=== PATIENT | male | born 1955 | race Caucasian/White ===

== ENCOUNTER 2016-12-14 09:47 | Inpatient (IN) | payer BC ==
--- NOTE | ~2016-12-14 | DS ---
Discharge Summary [facility] [address] [place] [place]. [address] NAME: ALICE SCHWARTZ : 53 STATUS : DIS IN PAT#: [id number] AGE: 61 ADM/REG DATE : 12/14/16 MR#: [id number] REPORT SERV DATE: 12/14/16 DICTATED BY: CHLOÉ GUSTAFSON DATE: 12/14/16 REPORT STATUS : Draft TRANSCRIBED BY: MODL DATE: 12/14/16 ADMISSION DATE: 12/14/2016 DISCHARGE DATE: 12/14/2016 HOSPITAL COURSE: Mr. Schwartz was a 61-year-old gentleman with a past medical history of underlying multiple myeloma who presented to the ER today in profound septic shock with neutropenia and thrombocytopenia. He was also noted to be hypokalemic. The patient was immediately given antibiotics, however, had a convulsive event in which patient then went comatose and required immediate intubation. Critical Care was called down to the emergency room. We then saw the patient, in which the patient continued to have profound shock with noted worsening acidosis with his pCO2 transcending from 37 up to 86. Prior to our arrival, Respiratory Therapy had actually already conducted ventilator strategy changes from SIMV to CMV for which the patient had a minute ventilation around 11 or 12. We further increased minute ventilation. However, the patient at that time, had his first PEA arrest which lasted around five minutes. After return of pulses bilaterally, the patient still had a blood pressure in the 90s on Levophed, vasopressin, Solu-Cortef, and amps of epinephrine. We conducted an immediate CT scan shortly thereafter on the way up to the intensive care unit to make sure the patient did not have any stroke. No stroke was seen other than old cortical strokes. The patient was then sent to the intensive care unit, the patient was noted to have a blood pressure greater than 100 systolic, however, continued hypoxia. There was no response to verbal or painful stimuli noted ever since my arrival in the emergency room. We then got a stat EEG, which showed significant slowing of the brain waves. He was noted to be hypercapnic at that time also. His blood pressure was also around 100 systolic. He then went into his second PEA arrest at 3:18, due to the gravity of his overall condition of continued hypercapnic respiratory failure and hypoxia on maximum mechanical ventilation, continued shock, significant encephalopathy and concern for anoxic brain injury in the setting of a right lower lobe pneumonia and shock refractory to steroids and pressor support along with fluids, it was felt that this patient would not survive a meaningful survival. Furthermore, we stopped the CPR and the patient had no brain wave activity noted at 5:20 upon our review and the patient went into final asystole around 3:31 as he had a bradycardic arrhythmia at the end of the code until asystole. Attempts to contact brother, Lai, are currently occurring, unable to get in touch with family. DISPOSITION: . DICTATED BY: Chloé Gustafson MD HFQ/KIRA Chloé Gustafson MD / [id number] Discharge Summary [address] [address] NAME: ALICE SCHWARTZ : 53 STATUS : DIS IN PAT#: [id number] AGE: 61 ADM/REG DATE : 12/14/16 MR#: [id number] REPORT SERV DATE: 12/14/16 DICTATED BY: CHLOÉ GUSTAFSON DATE: 12/14/16 REPORT STATUS : Draft TRANSCRIBED BY: KIRA DATE: 12/14/16 CC: Chloé Gustafson MD
--- NOTE | ~2016-12-14 | OP ---
Record Of [facility] [address] [place]. [address] NAME: ALICE SCHWARTZ : 53 STATUS : ADM IN PAT#: [id number] AGE: 61 ADM/REG DATE : 12/14/16 MR#: [id number] REPORT SERV DATE: 12/14/16 DICTATED BY: CHLOÉ DANIEL DATE: 12/14/16 REPORT STATUS : Draft TRANSCRIBED BY: MODL DATE: 12/14/16 DATE OF PROCEDURE: 12/14/2016 INDICATION FOR PROCEDURE: Second code blue. TIME OF CODE BLUE: The patient's second code blue was around 1520 hours. Please see nursing documentation. PROCEDURE NOTE: The patient was obtaining an EEG, for which the patient had significant slow wave motion and was maximized on mechanical ventilation with a rising pCO2 and acidemia. He also has significant hypoxemia. During the cardiac arrest, the patient was noted to have loss of brain waves and due to the severity of his underlying septic acidosis and multisystem organ failure with maximization of ventilator strategy and also pressor support, it was deemed that this patient would not survive a meaningful life and CPR was stopped around 1 minute into the 2nd CPR, and the patient was marianela arrest. Looking at the EEG monitor as CPR was going forward, the patient had no brainwave activity and CPR was stopped. The patient was made do not resuscitate. The patient proceeded to asystole. HFQ/KIRA Chloé Daniel MD / [id number] CC: Chloé Daniel MD
--- NOTE | ~2016-12-14 | OP ---
Record Of [facility] [address] [place]. [address] NAME: ALICE SCHWARTZ : 53 STATUS : ADM IN [facility]#: [id number] AGE: 61 ADM/REG DATE : 12/14/16 MR#: [id number] REPORT SERV DATE: 12/14/16 DICTATED BY: CHLOÉ DANIEL DATE: 12/14/16 REPORT STATUS : Draft TRANSCRIBED BY: MODL DATE: 12/14/16 DATE OF PROCEDURE: 12/14/2016 INDICATION FOR PROCEDURE: Cardiopulmonary arrest. TIME OF CODE BLUE: 1216 hours. PROCEDURE: The patient was in the emergency room, Critical Care team along with the emergency staff was actually in the room at the time of code blue. The patient by physical exam turned blue and was noted to be in PA arrest. He was very acidotic. At that time, CPR and Ambu bag ventilation through the ET tube was started immediately. The patient received epinephrine. He was PA and did not require any shocks. At that time, we obtained an arterial blood gas, which showed that the pH was 7.20 and pCO2 was 64, the patient's pCO2 was 86 prior. We had return of spontaneous circulation around 4-5 minutes after CPR. However, the patient's mental status was abnormal prior and post CPR. The patient is to be transferred to the CT scanner for evaluation of the brain and further stabilization in the intensive care unit. HFQ/KIRA Chloé Daniel MD / [id number] CC: Chloé Daniel MD
--- NOTE | ~2016-12-14 | HP ---
History And Physical [address] [place]. [address] NAME: ALICE SCHWARTZ : 53 STATUS : ADM IN [facility]#: [id number] AGE: 61 ADM/REG DATE : 12/14/16 MR#: [id number] REPORT SERV DATE: 12/14/16 DICTATED BY: MJ DANIEL DATE: 12/14/16 REPORT STATUS : Draft TRANSCRIBED BY: MODL DATE: 12/14/16 DATE OF ADMISSION: 12/14/2016 CONTINUATION: FAMILY HISTORY: Unable to obtain as there is no family currently in the room. SOCIAL HISTORY: The patient is a smoker, no alcohol or drug use per record. REVIEW OF SYSTEMS: Unable to obtain review of systems due to current status. PHYSICAL EXAMINATION: VITAL SIGNS: The patient is currently tachycardic with a heart rate around 120s to 130s, sinus arrhythmia. Blood pressure: The patient has a pulse, pressure is around 90 or 80 systolic. Respiratory rate: Per ventilator as the patient is currently on mechanical ventilation. EYES: Mediumly dilated and fixed, he is not blinking his eyes, has been on no sedation for 2.5 hours. Nonresponsive to verbal or painful stimuli. PULMONARY: Breath sounds bilaterally with decreased breath sounds in the posterior bases with mild wheezing. CARDIAC: Muffled heart sounds and tachycardic. ABDOMEN: The patient is status post multiple abdominal surgeries, abdomen is soft, nondistended. Has an ileostomy. LOWER EXTREMITIES: The patient has livedo reticularis bilaterally, cold extremities in all four extremities, faint peripheral pulses but does have femoral pulses. ASSESSMENT: Mr. 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 He has clearly had multiple abdominal surgeries. Again, we do not have his records from the outside and have no family currently at the bedside. The patient was seen in the emergency room, he was already on mechanical ventilation prior to my arrival. Within about 15 minutes after my arrival, the patient went PEA, his pCO2 increased rapidly as he was on SIMV and RT appropriately changing back to a regular CMV mode of ventilation. He had a cardiac arrest which lasted around 5 minutes, we had return of spontaneous circulation. Due to the known obvious neurologic insult that has clearly occurred, his situation has become significantly worse. ADMISSION PLAN: 1. Neurologic: Unclear of what may have happened, according to the nursing staff, he was in respiratory distress but was still able to communicate somewhat and had acute worsening of shortness of breath and neurologically he is essentially in a comatose state. We will obtain a stat CT scan of the head. His neurologic change occurred prior to his PEA arrest which occurred in the emergency room. 2. Shock: With the patient's neutropenia and thrombocytopenia, it is thought that he may History And Physical [address] [address] NAME: ALICE SCHWARTZ : 53 STATUS : ADM IN [facility]#: [id number] AGE: 61 ADM/REG DATE : 12/14/16 MR#: [id number] REPORT SERV DATE: 12/14/16 DICTATED BY: MJ DANIEL DATE: 12/14/16 REPORT STATUS : Draft TRANSCRIBED BY: MODL DATE: 12/14/16 have a septic shock picture. Cultures have been checked, we will obtain a sputum culture and since the patient most likely has had recent hospitalizations, we will start vancomycin and Zosyn. We will also start Solu-Cortef and for his shock, he is on Levophed, started vasopressin and Solu-Cortef. We will also start epinephrine and place an arterial line. 3. Kidney: Acute kidney injury, currently mild but I anticipate this to get worse. 4. Pulmonary: The patient is in acute respite respiratory failure: Changed his mechanical ventilation settings and now pCO2 is around 60. 5. Hematologic: The patient is noted to be thrombocytopenic and mild neutropenia. Most likely from underlying sepsis. 6. Goals of care: The patient is in a grave state, he is quite critical, has a high chance of mortality. Attempting to obtain family contact, this patient is appropriate currently for a [id number] and concern for anoxic brain injury. If this is not his wishes, comfort care measures should be taken; however, we, at this point in time, have no family and the patient's current status over the last several hours has deteriorated significantly, most likely from underlying septic shock. BRENTQ/MODL Mj Daniel MD / [id number] CC: Mj Daniel MD
--- NOTE | ~2016-12-14 | EEG ---
Electroencephalogram [facility] [address] [place]. [address] NAME: ALICE SCHWARTZ : 53 STATUS : DIS IN PAT#: [id number] AGE: 61 ADM/REG DATE : 12/14/16 MR#: [id number] REPORT SERV DATE: 12/22/16 DICTATED BY: GABO JAMES DATE: 12/21/16 REPORT STATUS : Draft TRANSCRIBED BY: KIRA DATE: 12/21/16 INTERPRETING PHYSICIAN: Gabo James MD-Neurology. EEG NUMBER: [id number]. LOCATION: CCU bed 9. REASON FOR EEG: Status post cardiac arrest. Poor responsiveness. ELECTROENCEPHALOGRAPHY REPORT: 23 surface electrodes, 10-20 international placement was used. The patient was noted unresponsive throughout this study. Photic stimulation was performed. Video monitoring was utilized. The background activity consisted of very low voltage, poorly organized theta and irregular in appearance. Activity frequency between 10 and 15. The patient became unresponsive with periods of cardiac arrhythmias and cardiac standstill. CPR was performed. A gradual decrease of heart rate was noted. The patient was pronounced. IMPRESSION: STATUS POST CARDIOPULMONARY ARREST. DURING THE EEG, THE PATIENT BECAME SEVERELY BRADYCARDIC. CPR WAS PERFORMED. THE PATIENT DID NOT RESPOND TO ALL THE MEASURES, AND THE PATIENT'S CEREBRAL ACTIVITY DISAPPEARED, AND NO CEREBRAL ACTIVITY WAS SEEN AT THE END OF THE RECORDING COMPATIBLE WITH CEREBRAL ACTIVITY WITH NO DISCERNIBLE ACTIVITY OBSERVED AT THE END OF THE RECORDING. NITZAA/KIRA Gabo James MD / [id number] CC: Chloé Gustafson MD
--- NOTE | ~2016-12-14 | HP ---
History And Physical [place] [place]. [address] NAME: ALICE SCHWARTZ : 53 STATUS : ADM IN [facility]#: [id number] AGE: 61 ADM/REG DATE : 12/14/16 MR#: [id number] REPORT SERV DATE: 12/14/16 DICTATED BY: CHLOÉ GUSTAFSON DATE: 12/14/16 REPORT STATUS : Draft TRANSCRIBED BY: MODL DATE: 12/14/16 DATE OF ADMISSION: 12/14/2016 REQUESTING FACILITY: Emergency room. CHIEF COMPLAINT: Unable to obtain as the patient is currently intubated. HISTORY OF PRESENT ILLNESS: The patient is unable to give a history as he is currently intubated. Unfortunately we have no family at the bedside, no records as he usually goes to an outside hospital and the emergency room has requested twice to get the records. However per EMS and also per discussion with the nursing staff and ER attending, this patient came in with shortness of breath. Was noted to be hypotensive with tachycardia and mild hypoxia. The patient arrived via ambulance and was in extremis. The patient was intubated. He had moderate to severe shortness of breath. The patient's nurse mentioned that he was barely able to speak but he was complaining of shortness of breath. He was initially placed on a non-rebreather and eventually increased to BiPAP in which he required intubation. Now that he has been intubated, the patient's pCO2 has unfortunately increased and ventilator strategy has changed per RT. PAST MEDICAL HISTORY: Hypertension, diabetes, probable intraabdominal cancer. HOME MEDICATIONS: Home medication list reviewed, incomplete list DICTATION ENDS HERE HFQ/MODL Chloé Gustafson MD / [id number] CC: Chloé Gustafson MD
[2016-12-14 08:45] LABS: ALLENS TEST Pos; BE (BASE EXCESS) -7.4 MEQ/L (0 +/- 2.5); CARBOXYHEMOGLOBIN 1.8 % (0-3); HCO3 (ACTUAL BICARBONATE) 18.2 MEQ/L (23-27); HEMOBLOGIN CONTENT 10.4 G/DL (14-18); INSTRUMENT SERIAL # 8087; METHEMOGLOBIN 0.3 % (0-3); O2 CONTENT 13.1 VOL% (18-24); OPERATOR ID 18801; PCO2 (CO2 TENSION) 37 MMHG (35-45); PO2 (O2 TENSION) 73 MMHG (79-93); SAMPLE Arterial; pH 7.31 (7.37-7.43)
[2016-12-14 09:24] LABS: BASOPHILS 0 %; EOSINOPHILS 0 %; ER CBC TAT 0 Hrs 09 Mins; HEMATOCRIT 30.3 % (40.0-51.0); HEMOGLOBIN 9.8 g/dL (13.6-17.8); IMMATURE GRANULOCYTES 14.2 %; LYMPHOCYTES 18.4 %; LYMPHOCYTES ABSOLUTE 0.39 10/3/uL (0.67-4.30); MANUAL DIFF NO %; MEAN CORPUS HGB CONC 32.3 g/dL (32.0-36.0); MEAN CORPUSCULAR HEMOGLOB 32.6 pg (26.0-34.0); MEAN CORPUSCULAR VOLUME 100.7 fL (80-100); MEAN PLATELET VOLUME 11.6 fL (9.2-13.0); MONOCYTES 3.3 %; MONOCYTES ABSOLUTE 0.07 10/3/uL (0.21-1.20); NEUTROPHILS 64.1 %; NEUTROPHILS ABSOLUTE 1.36 10/3/uL (2.02-8.40); NUCLEATED RED BLOOD CELLS 5.9 /100WBC (0-0); PLATELET COUNT 57 10/3/uL (150-400); RBC DISTRIBUTION WIDTH 19.2 % (12.0-16.0); RED CELL COUNT 3.01 10/6/uL (4.7-6.1); WHITE BLOOD CELLS 2.1 10/3/uL (4.5-10.5)
[2016-12-14 09:34] LABS: A/G RATIO 0.5 (0.7-1.9); ALBUMIN 1.8 G/DL (3.5-5.0); ALKALINE PHOSPHATASE 164 U/L (45-117); BUN (BLOOD UREA NITROGEN) 19 MG/DL (6-23); CALCIUM, SERUM 8.2 MG/DL (8.5-10.4); CHLORIDE, SERUM 99 MMOL/L (96-112); CO2 (CARBON DIOXIDE) 23 MMOL/L (24-34); CREATININE 1.61 MG/DL (0.70-1.30); GFR AFRICAN AMERICAN 52 ML/MIN (>=60); GFR NON AFRICAN AMERICAN 45 ML/MIN (>=60); GLOBULIN 3.5 G/DL (2.5-4.1); GLUCOSE, SERUM 91 MG/DL (60-99); POTASSIUM, SERUM 2.9 MMOL/L (3.5-5.3); SGOT(AST) 59 U/L (5-40); SGPT(ALT) 46 U/L (5-65); SODIUM, SERUM 139 MMOL/L (135-148); TOTAL BILIRUBIN 0.3 MG/DL (0-1.2); TOTAL PROTEIN 5.3 G/DL (6.0-8.5)
[2016-12-14 09:37] LABS: LACTATE 12.4 MMOL/L (0.3-2.4)
[2016-12-14 10:05] LABS: BAND NEUTROPHILS 10 %; ER DIFF TAT 0 Hrs 50 Mins; LYMPHOCYTES 17 %; LYMPHOCYTES ABSOLUTE (CALC) 0.36 10/3/uL (0.67-4.30); MONOCYTES 6 %; MONOCYTES ABSOLUTE (CALC) 0.13 10/3/uL (0.21-1.20); NEUTROPHILS ABSOLUTE (CALC) 1.62 10/3/uL (2.02-8.40); SEGMENTED NEUTROPHIL (0) 67 %; TOTAL NUCLEATED CELLS 100
[2016-12-14 10:06] LABS: ANISOCYTOSIS 1+ (5-10/OIF) (0-5/OIF); MACROCYTES 1+ (5-10/OIF) (0-5/OIF); PLATELET ESTIMATE DEC (ADEQUATE)
[2016-12-14 10:26] LABS: PROCALCITONIN 12.69 ng/mL (<0.5)
[2016-12-14 10:27] LABS: INTERNATIONAL NORMAL RATI 1.1 UNITS (-); PARTIAL THROMBO TIME 35.4 SEC (22.5-37.2); PROTIME (NOT ORD) 14.1 SEC (12.0-14.5)
[2016-12-14 10:39] LABS: ALLENS TEST Pos; BE (BASE EXCESS) -4.6 MEQ/L (0 +/- 2.5); CARBOXYHEMOGLOBIN 1.6 % (0-3); HEMOBLOGIN CONTENT 9.8 G/DL (14-18); INSTRUMENT SERIAL # 8087; METHEMOGLOBIN 0.5 % (0-3); MODE SIMV; O2 CONTENT 6.6 VOL% (18-24); OPERATOR ID 18801; PCO2 (CO2 TENSION) 86 MMHG (35-45); PO2 (O2 TENSION) 41 MMHG (79-93); PRESSURE SUPPORT 10 cm.H2O; SAMPLE Arterial
[2016-12-14] MEDS ORDERED: DEXAMETHASONE (11:38)
[2016-12-14] MEDS ORDERED: MIDODRINE (11:38)
[2016-12-14] MEDS ORDERED: DULOXETINE (11:38)
[2016-12-14] MEDS ORDERED: OXYCODONE/APAP (11:39)
[2016-12-14] MEDS ORDERED: REVLIMID (11:39)
[2016-12-14] MEDS ORDERED: QVAR (11:39)
[2016-12-14] MEDS ORDERED: FOLIC ACID (11:40)
[2016-12-14] MEDS ORDERED: POTASSIUM CL (11:40)
[2016-12-14] MEDS ORDERED: CYCLOBENZAPRINE (11:40)
[2016-12-14] MEDS ORDERED: TUDORZA PRESSAIR (11:40)
[2016-12-14] MEDS ORDERED: ASPIRIN (11:42)
[2016-12-14] MEDS ORDERED: *UNABLE3 (11:56)
[2016-12-14 15:03] LABS: ALLENS TEST Pos; BE (BASE EXCESS) -13.4 MEQ/L (0 +/- 2.5); CARBOXYHEMOGLOBIN 0.3 % (0-3); HCO3 (ACTUAL BICARBONATE) 17.9 MEQ/L (23-27); HEMOBLOGIN CONTENT 9.9 G/DL (14-18); INSTRUMENT SERIAL # 35151; METHEMOGLOBIN 0.8 % (0-3); MODE CMV; O2 CONTENT 12.1 VOL% (18-24); OPERATOR ID 13624; PCO2 (CO2 TENSION) 74 MMHG (35-45); PO2 (O2 TENSION) 82 MMHG (79-93); SAMPLE Arterial; TIDAL VOLUME 650 ML
[2016-12-14 15:46] LABS: BUN (BLOOD UREA NITROGEN) 18 MG/DL (6-23); CALCIUM, SERUM 7.5 MG/DL (8.5-10.4); CHLORIDE, SERUM 101 MMOL/L (96-112); CO2 (CARBON DIOXIDE) 19 MMOL/L (24-34); CREATININE 1.73 MG/DL (0.70-1.30); GFR AFRICAN AMERICAN 48 ML/MIN (>=60); GFR NON AFRICAN AMERICAN 41 ML/MIN (>=60); SODIUM, SERUM 136 MMOL/L (135-148)
[2016-12-14 15:47] LABS: GLUCOSE, SERUM 156 MG/DL (60-99); POTASSIUM, SERUM 3.2 MMOL/L (3.5-5.3)
== END 2016-12-14 18:44 | disposition expired | DRG 871 ==
LOC: ER 09:47 → CCU 12:12
PROVIDERS: Emergency Medicine; Internal Medicine Critical Care Medicine
PROC: 5A12012 Performance of Cardiac Output, Single, Manual (ICD-10-PCS; principal; 2016-12-14)
PROC: 5A1935Z Respiratory Ventilation, Less than 24 Consecutive Hours (ICD-10-PCS; 2016-12-14)
PROC: 0BH17EZ Insertion of Endotracheal Airway into Trachea, Via Natural or Artificial Opening (ICD-10-PCS; 2016-12-14)
PROC: 5A09357 Assistance with Respiratory Ventilation, Less than 24 Consecutive Hours, Continuous Positive Airway Pressure (ICD-10-PCS; 2016-12-14)
DX: A41.9 Sepsis, unspecified organism (principal); R65.21 Severe sepsis with septic shock; I46.9 Cardiac arrest, cause unspecified; N17.9 Acute kidney failure, unspecified; E87.2 Acidosis; J96.00 Acute respiratory failure, unspecified whether with hypoxia or hypercapnia; D69.6 Thrombocytopenia, unspecified; J96.01 Acute respiratory failure with hypoxia; I95.9 Hypotension, unspecified; I47.1 Supraventricular tachycardia; C76.2 Malignant neoplasm of abdomen; D70.9 Neutropenia, unspecified; F17.210 Nicotine dependence, cigarettes, uncomplicated; I10 Essential (primary) hypertension; E11.9 Type 2 diabetes mellitus without complications; R00.0 Tachycardia, unspecified; R09.02 Hypoxemia; J44.9 Chronic obstructive pulmonary disease, unspecified; R23.1 Pallor; Z66 Do not resuscitate
CPT/HCPCS: 31500; 31720; 36569; 36600; 70450; 71010; 71250; 74176; 80048; 80053; 82330; 82803; 82805; 82947; 83605; 83880; 84132; 84145; 84295; 85014; 85025; 85610; 85730; 87040; 87077; 87150; 87186; 87641; 92950; 93005; 94002; 94640; 94660; 95816; 96374; 96375; 99291; C1751; J0330; J1720; J1956; P9045